=== PATIENT | female | born 1960 | race Caucasian/White ===

== ENCOUNTER 2018-08-04 15:43 | Emergency (ER) | payer OTHER ==
[~2018-08-04] VITALS: Wt 84.0 kg
[2018-08-04] MEDS ORDERED: KETOROLAC 15 MG INJ IM STA (18:34)
--- NOTE | 2018-08-04 19:25 | ERD ---
ER Documentation Chief Complaint Chief Complaint LEFT ANKLE INJURY S/O GLF, MILD SWELLING NOTED HPI This is a 58-year-old female who is presenting with left ankle pain after a mechanical ground-level fall. The patient actually twisted her ankle while in the kitchen this afternoon. She is unable to bear weight at this time due to pain. She can range the ankle but it is limited due to pain. It is swollen and bruised. The patient's sensation is intact. Her pulses are intact. Her foot is not cold or blue or cyanotic. The patient does endorse feeling generally unwell over the last 2-3 days with a mild fever. She denies any cough or congestion. She denies any trouble breathing. She denies any earache or throat pain. She denies any diarrhea. She denies any dysuria. The patient has had no headache or vision changes. The patient does not endorse neck or back pain. The patient denies lightheadedness or dizziness. The patient has had no chest pain. The patient denies nausea or vomiting. The patient denies abdominal pain. The patient denies changes to bowel movements or urination. The patient has had no focal deficits. The patient has had no weakness or numbness or tingling to the face or extremities. ROS All systems reviewed and are negative except as per history of present illness. Allergies Allergies: Coded Allergies: No Known Allergy (Unverified , 08/04/18) PMhx/Soc Medical and Surgical Hx: pt denies Medical Hx, pt denies Surgical Hx History of Surgery: No Anesthesia Reaction: No Hx Neurological Disorder: No Hx Respiratory Disorders: No Hx Cardiac Disorders: No Hx Psychiatric Problems: No Hx Miscellaneous Medical Probl: No Hx Alcohol Use: No Hx Substance Use: No Hx Tobacco Use: No Smoking Status: Never smoker FmHx Family History: No diabetes Physical Exam Vitals Vital Signs Date Temp Pulse Resp B/P (MAP) Pulse Ox O2 O2 Flow FiO2 Time Delivery Rate 08/04/18 100.3 85 16 147/69 96 15:47 (95) Physical Exam Const: No acute distress Head: Atraumatic Eyes: Normal Conjunctiva ENT: Normal External Ears, Nose and Mouth. Neck: Full range of motion. No meningismus. Resp: Clear to auscultation bilaterally Cardio: Regular rate and rhythm, no murmurs Abd: Soft, non tender, non distended. Normal bowel sounds Skin: No petechiae or rashes Back: No midline or flank tenderness Ext: No cyanosis. Left ankle edema, bruising and tenderness to palpation, limited range of motion secondary to pain. Neur: Awake and alert Psych: Normal Mood and Affect Results 24 hrs Current Medications Medications Dose Sig/Kacie Start Time Status Last (Trade) Ordered Route PRN Stop Time Admin Dose Reason Admin Ketorolac 15 mg ONCE STAT 08/04/18 DC 08/04/18 Tromethamine IM 18:34 18:44 (Toradol) 08/04/18 18:35 Procedures/MDM MDM The patient's presentation warrants further investigation. Previous medical records, if available, were reviewed. IMAGING Imaging and Radiology interpretation reviewed. XR L Ankle FINDINGS: There is a fracture of the distal fibula with minimal offset. There is no dislocation. The ankle mortise is within normal limits. Bone mineralization is within normal limits. There is no radiopaque foreign body or abnormal calcification. IMPRESSION: Distal fibular fracture. Electronically viewed and signed by Efra Rivers MD, on 08/04/2018 19:08 TREATMENT/DISPOSITION The patient presents after a trauma to the left ankle. She sustained a distal fibula fracture. The patient was splinted with a sugar tong and posterior short leg splint under my direct supervision. The patient was neurovascularly intact after placement. The patient also has evidence of a viral syndrome. The patient's symptoms have been ongoing for greater than 48 hours. The patient symptoms could potentially be consistent with the flu, but I do not feel that Tamiflu would be beneficial at this time. I do not see evidence of otitis media or pharyngitis. I have low suspicion for pneumonia. The patient's lungs are clear. I do not suspect bronchitis. I do not hear any wheezing. I do not see any evidence of soft tissue infection. The patient does not endorse a history concerning for an i ntra-abdominal pathology. She does not have a history concerning for a urinary tract infection. The patient was treated with Toradol in the emergency department. Upon reevaluation of the patient, symptoms have improved. No emergent diagnoses were identified. At this time, I feel that the patient stable for discharge. The patient was instructed to follow-up with a primary care physician in 1-3 days. She was also given the telephone number for Dr. Garrido's office. She may also follow-up with her primary doctor who can help coordinate care with an orthopedic physician. She understands that she needs to see an orthopedic physician within the next week. The patient will be given strict precautions with which to return to the emergency department. Prescriptions: Ibuprofen The patient's blood pressure was elevated at greater than 120/80 while in the emergency department. The patient was otherwise stable with no evidence of hypertensive urgency or emergency. The patient does not require admission for blood pressure control. I have discussed with the patient the risks of hypertension. I have instructed the patient to return to the ER for any new or worsening symptoms including chest pain, shortness of breath, headache, blurred vision, confusion, nausea, vomiting or LOC. I have advised the patient to follow up with the primary care physician for outpatient monitoring and treatment for h ypertension in 1-3 days. Disclaimer: Inadvertent spelling and grammatical errors are likely due to EHR/dictation software use and do not reflect on the overall quality of patient care. Note that the electronic time recorded on this note does not necessarily reflect the actual time of the patient encounter. Departure Diagnosis: Primary Impression: Fracture of distal end of fibula Encounter type: initial encounter Fracture type: closed Fracture morphology: unspecified fracture morphology Laterality: left Qualified Codes: S82.832A - Other fracture of upper and lower end of left fibula, in itial encounter for closed fracture Additional Impression: Viral syndrome Condition: ZEE Crawley MD Aug 04, 2018 19:25
[2018-08-04] MEDS ORDERED: IBUP-1542 PO (19:26)
[2018-08-04 19:41] VITALS: BP 144/70; PULSE 96; RESP 19
== END 2018-08-04 20:10 | disposition home or self-care (01) ==
LOC: FTE 15:43
DX: S82.832A Other fracture of upper and lower end of left fibula, initial encounter for closed fracture (principal); B34.9 Viral infection, unspecified; W18.39XA Other fall on same level, initial encounter; Y92.030 Kitchen in apartment as the place of occurrence of the external cause
CPT/HCPCS: 29515; 73610; 96372; J1885; Z7502

== ENCOUNTER 2019-01-20 17:08 | Emergency (ER) | payer OTHER ==
[~2019-01-20] VITALS: Ht 167.6 cm; Wt 90.6 kg
[~2019-01-20 17:08] MED LIST: IBUP-1542 PO; MECL12.574 PO; ONDA4TAB14 PO
[2019-01-20 17:12] VITALS: Ht 167.6 cm; Wt 90.6 kg
[2019-01-20] MEDS ORDERED: ONDANSETRON 4 MG INJ IV STA (19:15)
[2019-01-20] MEDS ORDERED: MECLIZINE 12.5 MG TAB PO ONE (19:30)
[2019-01-20] MEDS ORDERED: SOD CHLORIDE 0.9% 1,000 ML IV ONE (19:30)
[2019-01-20 20:31] VITALS: BP 121/61; PULSE 69; RESP 16
== END 2019-01-20 20:32 | disposition home or self-care (01) ==
LOC: FTE 17:08
DX: R42 Dizziness and giddiness (principal); R11.2 Nausea with vomiting, unspecified
CPT/HCPCS: 36415; 80053; 84484; 85025; 93005; 96361; 96374; J2405; J7030; Z7502; Z7610